=== PATIENT | male | born 1955 | race Caucasian/White ===

== ENCOUNTER 2016-12-22 14:00 | Inpatient (IN) ==
[2016-12-22] MEDS ORDERED: D50W SYRINGE ONE (14:47)
[2016-12-22] MEDS ORDERED: D50W SYRINGE IV ONE (14:57)
[2016-12-22 15:04] LABS: MANUAL DIFF NEEDED? NO
--- NOTE | 2016-12-22 15:07 | PROVIDER DOCUMENTATION ---
HPI-General Adult - General Chief Complaint: Low Blood Sugar Stated Complaint: low blood sugar Time Seen by Provider: 12/22/16 14:30 Source: patient Allergies/Adverse Reactions: Patient Allergies Allergy/AdvReac Type Severity Reaction Status Date / Time No Known Allergies Allergy Verified 08/01/15 09:37 Home Medications: Home Medication List Medication Instructions Recorded Confirmed Last Taken Type Alprazolam [Xanax] 0.5 mg PO BID PRN PRN 08/01/15 04/11/16 04/09/16 History 0.5 Amitriptyline [Elavil] 25 mg PO HS 08/01/15 04/11/16 04/10/16 22:00 History 25 Aspirin 81 mg PO DAILY 08/01/15 04/11/16 04/03/16 History 81 Carvedilol 12.5 mg PO BID 08/01/15 04/11/16 04/11/16 06:00 History 12.5 Citalopram [Celexa] 40 mg PO DAILY 08/01/15 04/11/16 04/10/16 22:00 History 40 Enalapril Maleate 5 mg PO BID 08/01/15 04/11/16 04/11/16 00:00 History 5 Lacosamide [Vimpat] 200 mg PO DAILY 08/01/15 04/11/16 04/10/16 22:00 History 200 Modafinil 1 tab PO BID 08/01/15 04/11/16 04/11/16 06:00 History 1 Pioglitazone HCl/Metformin HCl 1 each PO BID 08/01/15 04/11/16 04/10/16 22:00 History [Pioglitazone-Metformin 15850] 1 Ranitidine [Zantac] 300 mg PO DAILY 08/01/15 04/11/16 04/11/16 06:00 History 300 Sertraline [Zoloft] 2 tab PO DAILY 08/01/15 04/11/16 04/11/16 06:00 History 2 Terazosin [Hytrin] 5 mg PO DAILY 08/01/15 04/11/16 04/11/16 06:00 History 5 Tizanidine [Zanaflex] 4 mg PO Q8H PRN PRN 08/01/15 04/11/16 04/10/16 22:00 History 4 Tramadol HCl [Ultram] 50 mg PO Q4H PRN PRN #0 tablet 08/04/15 04/11/16 04/11/16 06:00 Rx 50 Amoxicillin 500 mg PO TID 04/05/16 04/11/16 04/10/16 22:00 History 500 Sitagliptin Phosphate [Januvia] 25 mg PO DAILY 04/05/16 04/11/16 04/10/16 06:00 History 25 Hydrocodone/Acetaminophen [[place] 1 each PO Q4H PRN PRN #12 tablet 04/11/16 Unknown Rx 7.5-325 Tablet] - History of Present Illness -Gen Adult Nature of Presenting Problems: Patient is a pleasant 61 yrs old male with hx of DM , CHF and multiple other co morbidites, has come with low BGM and tiredness and weakness. He takes lot of medication and does not know exactly which ones he takes or not. He tells that he has been feeling somewhat funny, tired and weak for the last one week. No particular change in the lifestyle. Per his friend, he smokes a lot while he tells it is not much . He is feeling sleepy. He does have history of MANNIE but not very compliant with the CPAP. Quality of Pain: reports: none Context/Activities at Onset: reports: none Modifying Factors: improves with: nothing Associated Symptoms: reports: denies symptoms Similar Symptoms Previously?: Yes Recently seen or treated by another doctor?: No - Diabetes Related Context Context: reports: low blood sugar Review of Systems - Adult - REVIEW OF SYSTEMS - ADULT Constitutional: reports: other (Feeling sleepy and tired) Eyes: reports: no symptoms reported Ears, Nose, Mouth & Throat: reports: no symptoms reported Cardiovascular: reports: no symptoms reported Respiratory: reports: wheezing Gastrointestinal: reports: no symptoms reported Genitourinary: reports: no symptoms reported Musculoskeletal: reports: no symptoms reported Integumentary: reports: no symptoms reported Neurological: reports: no symptoms reported Psychiatric: reports: no symptoms reported Endocrine: reports: no symptoms reported Hematologic/Lymphatic: reports: no symptoms reported Allergic/Immunologic: reports: no symptoms reported Past History - Adult - PAST MEDICAL HISTORY-ADULT Review of Records: reports: Old Records Reviewed Major Childhood Illnesses: reports: denies history Cardiovascular: reports: CHF Respiratory: reports: denies history Gastrointestinal: reports: denies history Obstetrical/Gynecological: reports: denies history Genitourinary: reports: denies history Musculoskeletal: reports: denies history Neurological: reports: denies history Psychiatric: reports: denies history Endocrine/Immune: reports: Diabetes Diabetes Type: Type 2 - PRIOR SURGERIES/PROCEDURES Surgical/Procedure History: reports: none - FAMILY HISTORY Family History: reviewed, not pertinent - SOCIAL HISTORY Smoking: greater than 1 pack/day Provider spent 3-5 mins advising pt. on dangers of tobacco.: Discussed manners to quit use, and f/u contacts for add'l counseling. Substance Use: none/never Physical Exam-General - PHYSICAL EXAM-ADULT Initial Vital Signs Reviewed: Yes - CONSTITUTIONAL General Appearance: mild distress, obese, other - EYES Eyes: PERRL/EOMI - HEAD, EARS, NOSE, MOUTH & THROAT HENMT: normocephalic/atraumatic - NECK Neck: non-tender - RESPIRATORY Respiratory: chest non-tender, no pleuratic chest pain, decreased breath sounds , wheezing - CARDIOVASCULAR Cardiovascular: normal peripheral pulses - GASTROINTESTINAL (ABDOMEN) Abdominal Exam: non tender, soft - LYMPHATIC Lymphatic: no adenopathy - MUSCULOSKELETAL Back Exam: normal inspection, no CVA tenderness Extremity: normal range of motion - SKIN Integumentary: normal color, warm/dry, erythema - 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, grossly normal - PSYCHIATRIC Psych/Mental Status: oriented x 3 Progress - PLAN OF CARE/RESULTS Progress/Plan/Lab Results: Vital Signs - 8 hr 12/22/16 14:13 Temperature 97.5 F L Pulse Rate 57 L Respiratory Rate 18 Blood Pressure 124/59 O2 Sat by Pulse Oximetry 100 Orders Category Date Time Status IV Insertion ORDERED Care 12/22/16 14:[address] HEAD W/O CONTRAST [CT] Stat Exams 12/22/16 14:53 Ordered CBC WITH DIFF [HEME] Stat Lab 12/22/16 14:23 Results COMPREHENSIVE METABOLIC PANEL [CHEM] Stat Lab 12/22/16 14:23 Received TROPONIN T Stat Lab 12/22/16 14:23 Received UA NIMS W/REFLEX CULT [URINALYSIS] Stat Lab 12/22/16 14:53 Uncollected Dextrose 50% Syringe [D50w Syringe] Med 12/22/16 14:47 Discontinued 50 ml .ROUTE .STK-MED ONE Dextrose 50% Syringe [D50w Syringe] Med 12/22/16 14:57 Discontinued 50 ml IV NOW ONE EKG [EKG] Stat Ther 12/22/16 14:53 Ordered Result Diagrams: 12/22/16 14:23 12/22/16 14:23 - REASSESSMENT Reassessment #1 Time Reassessed: 16:10 Reassessment Comment: Sleepy Departure - Departure Date of Disposition Decision: 12/22/16 (Admission ) Time of Disposition Decision: 18:00 DIAGNOSIS: Hypoglycemia, Acute on chronic renal failure, COPD (chronic obstructive pulmonary disease) Disposition: ADMITTED INPATIENT 09 Certified Medical Emergency: Emergent Condition: Stable Additional Freetext Instructions: CT head is negative. CXR seen , no apparent finding. Being admitted for acute on Chronic Renal failure, drowsiness duet o possible polypharmacy and COPD exacerbation . Given here Solu medrol , Breathing treatments, IV fluid. Talked to Ms. Ignacia Gonzalez the Hospitalist DEMETRIO to admit. She has kindly agreed for that. Referrals and Follow-Ups: Rashel Bautista [Primary Care Provider] - - Critical Care Note This patient required my direct & personal management of CC.: No Attestation - Physician/ ELIZABETH Attestation Patient care was provided by Advanced Practice Provider:: No The physician spent face to face time with patient:: Yes Advanced Practice Provider documentation review:: Supervising physician onsite and consulted in the evaluation and care of this patient. The physician did have a face to face encounter with the patient.
[2016-12-22] MEDS ORDERED: SOLU-MEDROL IV ONE (15:10)
[2016-12-22] MEDS ORDERED: DUONEB (A & A) INH ONE (15:10)
[2016-12-22 15:11] LABS: BASO% 0.3 % (0.0-0.8); EOS# 0.19 X1000 (0.0-0.7); EOS% 2.6 % (0.0-10.0); HEMATOCRIT 33.3 % (42.0-52.0); HEMOGLOBIN 10.2 g/dL (14.0-18.0); IMM GRAN# 0.02 X1000 (0.0-0.04); IMM GRAN% 0.3 % (0.0-0.5); LYMPH% 10.8 % (20.5-51.1); MCH 29.3 PG (27-31); MCHC 30.6 g/dL (33-37); MCV 95.7 FL (81-99); MONO% 5.4 % (1.7-9.3); MPV 9.2 FL (7.4-10.4); NEUT% 80.6 % (42.2-75.2); PLT 176 X1000 (130-400); RBC 3.48 XMIL (4.7-6.1)
[2016-12-22 15:35] LABS: ALBUMIN 4.5 g/dL (3.5-5.0); CALCIUM 9.1 mg/dL (8.8-10.2); POTASSIUM 4.6 mmol/L (3.5-5.1); TOTAL BILIRUBIN 0.17 mg/dL (0.20-1.00); TOTAL PROTEIN 7.2 g/dL (6.3-8.3)
[2016-12-22] MEDS ORDERED: NS 500 ML IV ONE (16:23)
[2016-12-22] MEDS ORDERED: NS 1,000 ML IV ONE ×2 (16:27→16:45)
--- NOTE | 2016-12-22 16:53 | Diag Imaging Result Doc PS360 ---
EXAM: CT HEAD W/O CONTRAST TECHNIQUE: Dose reduction protocol was used. INDICATION: ams COMPARISON: None. FINDINGS: There is no definite acute infarct given the limited sensitivity of CT versus MRI. There is no discrete intracranial mass, mass effect, or intracranial hemorrhage. The surrounding soft tissues and bony structures are essentially unremarkable. IMPRESSION: No evidence of acute intracranial pathology. Electronically signed by Maldonado Burdick 12/22/2016 4:51 PM
[2016-12-22 18:16] LABS: URINE CULTURE NEEDED? NO; URINE MICRO REVIEW NEEDED? NO; URINE SOURCE CLEAN CATCH
[2016-12-22 18:20] LABS: BILIRUBIN URINE NEGATIVE (NEGATIVE); BLOOD URINE NEGATIVE (NEGATIVE); COLOR YELLOW; GLUCOSE URINE NEGATIVE (NEGATIVE); LEUKOCYTES URINE NEGATIVE (NEGATIVE); NITRITE URINE NEGATIVE (NEGATIVE); PROTEIN URINE NEGATIVE (NEGATIVE); SP GRAVITY URINE 1.009; TURBIDITY URINE CLEAR (CLEAR); UR EPITHELIAL CELLS <10 /HPF (<10); URINE BACTERIA NEGATIVE /HPF; URINE RBC <10 /HPF (<10); URINE WBC <10 /HPF (<10); UROBILINOGEN URINE NORMAL (NORMAL)
[2016-12-22 18:42] LABS: UR AMPHETAMINES QUAL NONE DETECTED (NONE DETECT); UR BARBITUATES QUAL NONE DETECTED (NONE DETECT); UR BENZODIAZEPIN QUAL NONE DETECTED (NONE DETECT); UR CANNABINOIDS QUAL NONE DETECTED (NONE DETECT); UR COCAINE QUAL NONE DETECTED (NONE DETECT); UR METHADONE QUAL NONE DETECTED (NONE DETECT); UR OPIATES QUAL NONE DETECTED (NONE DETECT); UR OXYCODONE QUAL NONE DETECTED (NONE DETECT); UR PCP QUAL NONE DETECTED (NONE DETECT)
[2016-12-22] MEDS ORDERED: TYLENOL PO PRN (19:03)
--- NOTE | 2016-12-22 19:28 | Diag Imaging Result Doc PS360 ---
EXAM: CHEST-PORTABLE INDICATION: Wheezing TECHNIQUE: One view COMPARISON: None. FINDINGS: The lungs are grossly clear. There is no discrete pleural fluid collection or pneumothorax. Cardiac silhouette is grossly unremarkable accounting for magnification from AP technique. Central vasculature appears normal. IMPRESSION: No evidence of acute pathology by plain radiograph. Electronically signed by Maldonado Burdick 12/22/2016 7:26 PM
--- NOTE | 2016-12-22 20:21 | HISTORY AND PHYSICAL ---
CHIEF COMPLAINT: Altered mental status. HISTORY OF PRESENT ILLNESS: 61-year-old male with multiple comorbidities including hypertension, diabetes, peripheral neuropathy, COPD, anxiety, obesity, obstructive sleep apnea, anemia and CKD was brought by EMS due to altered mental status. As per the at noon this patient was very somnolent and sweating, he also was complaining of dizziness. He went to sleep and she could not wake this patient up so she decided to call EMS and they found out that this patient's blood sugar was really low so they treat this patient and brought this patient over [facility]. Upon arrival they found out that this patient's glucose was around 45, also he has acute kidney injury on chronic kidney disease, he was feeling a little bit better but he still was somehow somnolent. I talked to the family and also with the patient and I found out that this patient is taking multiple medications. In his bag of medications some of them are repeated so probably this patient is taking the same medication multiple times a day, also inside the same bag he has multiple medications that he is no longer on it so I removed all the medication that he was not take it and I put inside the bag the medication that he is he is still taking, he has 4 different pills for his diabetes and 3 of them can potentially cause hypoglycemia. This patient will be admitted to treat his hypoglycemia and acute kidney injury, upon physical examination this patient also is having mild shortness of breath and he is wheezing, he has a recent history of COPD and he is still smoking. REVIEW OF SYSTEMS: All the review of systems were reviewed. All of them are negative except as per HPI. PAST MEDICAL HISTORY: Hypertension, diabetes, obstructive sleep apnea, peripheral neuropathy, COPD, anxiety, obesity, anemia and CKD. 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 Remote history of right knee surgery and feet surgery, also history of neck surgery secondary to disk herniation. SOCIAL HISTORY: This patient smokes since age 21 so he has been smoking for 40 years about 1-1/2 pack daily. He is trying to quit smoking. No alcohol. No drugs. He is not working at this moment. ALLERGIES: No known allergies. BLOOD TRANSFUSIONS: None. HOME MEDICATIONS: Terazosin 5 mg p.o. daily, Januvia 25 mg p.o. daily, simvastatin 80 mg p.o. daily, sertraline 25 mg p.o. daily, ranitidine 150 mg p.o. daily, pioglitazone/ metformin 15/850 one tablet p.o. b.i.d., modafinil 1 tablet p.o. b.i.d. 200 mg, Vimpat 200 mg p.o. daily, [place] 7.5 one tablet p.o. q.4 hours p.r.n., gabapentin 300 mg p.o. t.i.d., furosemide 40 mg p.o. daily, enalapril 5 mg p.o. b.i.d., citalopram/ Celexa 40 mg p.o. daily, carvedilol 12.5 mg p.o. b.i.d., aspirin 81 mg p.o. daily, amitriptyline 25 mg p.o. at bedtime, alprazolam 0.5 mg p.o. b.i.d. p.r.n. anxiety. PHYSICAL EXAM: VITAL SIGNS: Temperature 97.5 degrees, pulse 57, respiratory rate 18, blood pressure 124/59, oxygen saturation 100% on room air. HEENT: Head normocephalic. No trauma. PERRLA. NECK: Supple. No JVD. No masses. Central trachea. Obese. CHEST: Decreased breath sounds globally with expiatory wheezing scattered. CARDIOVASCULAR: RRR. No murmurs. Bradycardic. ABDOMEN: Soft, obese, protuberant, positive bowel sounds. EXTREMITIES: 1+ lower extremity edema. No clubbing. No cyanosis. NEURO: The patient is alert and oriented x3. He answered all my questions but slow answer. He moves all 4 extremities. LABORATORY: WBC 7.3, hemoglobin 10.2, hematocrit 33.3, platelets 176,000. Sodium 139, potassium 4.6, chloride 99, bicarbonate 26, BUN 33, creatinine 2.5, glucose 45, calcium 9.1. ASSESSMENT AND PLAN: 1. Hypoglycemia, this patient is taking multiple drugs for diabetes. Some of them can cause hypoglycemia, I will stop all of them and I will put this patient on a diet and sliding scale insulin and pattern of blood sugar. 2. Altered mental status likely secondary to polypharmacy and hypoglycemia. He is getting better. We will keep an eye on this. 3. Hypertension. I will continue with carvedilol but I will stop the REJI inhibitor because of the kidney injury. 4. Acute kidney injury on chronic kidney disease. As above. 5. Diabetes. I will put this patient on a sliding scale insulin and pattern of blood sugar. At this moment this patient is hypoglycemic. 6. Peripheral neuropathy. Continue with Neurontin. 7. Chronic obstructive pulmonary disease with mild exacerbation. I will put this patient with breathing treatment. 8. Anxiety. I will continue with his p.r.n. home medication. 9. Obstructive sleep apnea. The family is going to bring over his CPAP machine. Apparently this patient is not compliant at home with this machine. 10. Obesity, aware. Will do a diabetic diet for him. 11. Tobacco abuse. This patient has been highly advised against tobacco abuse. I will continue with daily cessation education. He seems to understand. I did the whole explanation also to the family. 12. Deep vein thrombosis prophylaxis. I will put this patient on heparin subcutaneously. 13. Gastroesophageal reflux disease. Continue with his home medication, ranitidine. Further recommendation pending hospital course. cc: Jeffrey Gray MD MTDD
[2016-12-22] MEDS ORDERED: XANAX PO PRN (20:37)
[2016-12-22] MEDS ORDERED: NORCO-7.5 PO PRN (20:37)
[2016-12-22] MEDS: DUONEB (A & A) INH SCH ×2 (20:45→23:15)
[2016-12-22] MEDS: COREG PO SCH (21:44)
[2016-12-22] MEDS: HUMULIN R SUBQ SCH (21:45)
[2016-12-22] MEDS: HEPARIN SUBQ SCH (21:47)
[2016-12-23] MEDS: DUONEB (A & A) INH SCH ×6 (04:17→22:58)
[2016-12-23] MEDS: HUMULIN R SUBQ SCH ×3 (06:41→16:19)
[2016-12-23 07:43] LABS: BASO% 0.1 % (0.0-0.8); HEMATOCRIT 33.6 % (42.0-52.0); HEMOGLOBIN 10.4 g/dL (14.0-18.0); IMM GRAN# 0.05 X1000 (0.0-0.04); IMM GRAN% 0.4 % (0.0-0.5); LYMPH# 0.74 X1000 (1.2-3.4); LYMPH% 6.3 % (20.5-51.1); MANUAL DIFF NEEDED? YES; MCH 29.4 PG (27-31); MCV 94.9 FL (81-99); MONO# 0.22 X1000 (0.11-0.59); MONO% 1.9 % (1.7-9.3); MPV 9.3 FL (7.4-10.4); NEUT% 91.3 % (42.2-75.2); PLT 166 X1000 (130-400); RBC 3.54 XMIL (4.7-6.1)
[2016-12-23 07:45] LABS: ALBUMIN 3.9 g/dL (3.5-5.0); CALCIUM 8.7 mg/dL (8.8-10.2); POTASSIUM 4.9 mmol/L (3.5-5.1); TOTAL BILIRUBIN 0.1 mg/dL (0.20-1.00); TOTAL PROTEIN 6.6 g/dL (6.3-8.3)
[2016-12-23] MEDS: ZANTAC PO SCH (08:26)
[2016-12-23] MEDS: ASPIRIN PO SCH (08:26)
[2016-12-23] MEDS: COREG PO SCH ×2 (08:26→21:29)
[2016-12-23] MEDS: CELEXA PO SCH (08:26)
[2016-12-23] MEDS: HYTRIN PO SCH (08:26)
[2016-12-23] MEDS: HEPARIN SUBQ SCH ×2 (08:26→21:29)
[2016-12-23 09:32] LABS: BANDS 4 % (0-1); LYMPHS 6 % (21-51); MONO 2 % (1-9)
[2016-12-23] MEDS ORDERED: NS 1,000 ML IV SCH (10:06)
--- NOTE | 2016-12-23 11:10 | PROGRESS NOTE ---
DATE: 12/23/2016 SUBJECTIVE: This patient states that he is feeling a little bit better. He is complaining of mild generalized weakness. His blood sugar has been stable and he looks more alert and oriented today. His creatinine is getting better. I held his REJI inhibitor and I held his Lasix to avoid more kidney dysfunction. He received IV fluids at the emergency department and now he will be on gentle fluids. PHYSICAL EXAMINATION: Vital Signs: Temperature 98.2 degrees, pulse 73, respiratory rate 16, blood pressure 127/56, oxygen saturation 98 on room air. HEENT: Head normocephalic. No trauma. PERRLA. Neck: Supple. No JVD. No masses. Central trachea. Obese. Chest: Decreased breath sounds globally with mild expiatory wheezing, scattered. Cardiovascular: RRR. No murmurs. Abdomen: Soft, obese, protuberant. Positive bowel sounds. Extremities: There is 1+ lower extremity edema. No clubbing. No cyanosis. Neurological Examination: The patient is alert and oriented x3. He is answering all my questions. He looks better compared with yesterday. He moves all 4 extremities. LABORATORY: WBC 11.7, hemoglobin 10.4, hematocrit 33.6, platelets 166,000. Sodium 136, potassium 4.9, chloride 100, bicarbonate 26, BUN 33, creatinine 2, glucose 133, calcium 8.7. ASSESSMENT AND PLAN: 1. Hypoglycemia. This is getting better. No more hypoglycemia for the past 12 hours. I think he is taking too many medication for his diabetes. For now, I will continue with the sliding scale insulin. 2. Altered mental status, likely secondary to polypharmacy and hypoglycemia. This is getting better as well. We will continue to monitor. 3. Acute on chronic kidney disease. I have stopped his REJI inhibitor and also his furosemide for now. We will restart this treatment once he is BUN and creatinine are at baseline. 4. Hypertension. Continue with carvedilol. Blood pressure has been stable. 5. Diabetes. Continue with sliding scale insulin and pattern of blood sugar at this moment. 6. Chronic obstructive pulmonary disease with mild exacerbation. Continue with breathing treatment. He is breathing better. 7. Peripheral neuropathy. Continue with Neurontin. 8. Obstructive sleep apnea. The family is going to bring over his CPAP machine. Apparently, he is not compliant at home with this treatment. 9. Obesity, aware. Continue with diabetic diet. 10. Tobacco abuse. This patient has been highly advised against tobacco abuse. I will continue with daily cessation education. 11. Deep venous thrombosis prophylaxis. Continue with heparin subcutaneously. 12. Gastroesophageal reflux disease. Continue with ranitidine. I think this patient is getting better. He has been taking a lot of medications. I do believe that this is the cause of his problems, polypharmacy. I think we can remove most of his medications. He does not even know why he is taking some of them. For now, we will continue with the same treatment. He is getting better. Kidney function is getting better. The creatinine decreased from 2.5-2. Continue with gentle fluid resuscitation. Hopefully, tomorrow we are going to be able to discharge this patient but also we are going to be able to remove some of his medications. cc: Jeffrey Gray MD
[2016-12-23] MEDS: ZOCOR PO SCH (21:29)
[2016-12-24] MEDS: HUMULIN R SUBQ SCH ×4 (00:18→21:22)
[2016-12-24] MEDS: DUONEB (A & A) INH SCH ×6 (03:20→23:00)
[2016-12-24 06:55] LABS: MANUAL DIFF NEEDED? NO
[2016-12-24 06:58] LABS: BASO% 0.1 % (0.0-0.8); EOS# 0.05 X1000 (0.0-0.7); EOS% 0.6 % (0.0-10.0); HEMATOCRIT 30.6 % (42.0-52.0); HEMOGLOBIN 9.2 g/dL (14.0-18.0); IMM GRAN# 0.04 X1000 (0.0-0.04); IMM GRAN% 0.4 % (0.0-0.5); LYMPH# 2.04 X1000 (1.2-3.4); LYMPH% 22.6 % (20.5-51.1); MCH 28.6 PG (27-31); MCHC 30.1 g/dL (33-37); MONO# 0.76 X1000 (0.11-0.59); MONO% 8.4 % (1.7-9.3); NEUT% 67.9 % (42.2-75.2); PLT 151 X1000 (130-400); RBC 3.22 XMIL (4.7-6.1)
[2016-12-24 07:08] LABS: HEMOGLOBIN A1C 4.9 % (4.8-6.0)
[2016-12-24 07:22] LABS: CALCIUM 8.4 mg/dL (8.8-10.2); POTASSIUM 4.7 mmol/L (3.5-5.1)
--- NOTE | 2016-12-24 08:54 | EKG Report ---
Test Performed on : 12/22/2016 2:52:53 PM Test Reason : ams Blood Pressure : / mmHG Vent. Rate : 054 BPM Atrial Rate : 054 BPM P-R Int : 192 ms QRS Dur : 136 ms QT Int : 448 ms P-R-T Axes : 066 -32 -06 degrees QTc Int : 424 ms Sinus bradycardia. Left axis deviation Right bundle branch block Abnormal ECG When compared with ECG of 01-AUG-2015 10:01, No significant change was found Unconfirmed Result
[2016-12-24] MEDS: HEPARIN SUBQ SCH ×2 (09:38→21:15)
[2016-12-24] MEDS: ASPIRIN PO SCH (09:39)
[2016-12-24] MEDS: CELEXA PO SCH (09:39)
[2016-12-24] MEDS: HYTRIN PO SCH (09:39)
[2016-12-24] MEDS: COREG PO SCH ×2 (09:39→21:15)
[2016-12-24] MEDS: ZANTAC PO SCH (09:39)
[2016-12-24] MEDS: 1/2 NS 1,000 ML IV SCH (17:31)
--- NOTE | 2016-12-24 17:45 | PROGRESS NOTE ---
DATE: 12/24/2016 SUBJECTIVE: The patient is sitting up at the edge of the bed. He states that he feels a lot better today. His blood sugars have been stable. OBJECTIVE: Vital Signs: Temperature 98 degrees, blood pressure 139/67, heart rate 61, respirations 20, O2 saturation is 98% on room air. General: This is a morbidly obese, elderly male, sitting at the edge of the bed, in no acute distress. Head: Normocephalic, atraumatic. Heart: S1, S2. Normal. Regular rate and rhythm. Lungs: Clear to auscultation bilaterally. No wheezes. No rales. No rhonchi. Abdomen: Positive bowel sounds. Soft, nontender, nondistended. Extremities: No edema. No cyanosis. No calf tenderness. Neurologic: The patient is alert and oriented x3. LABS: White blood cell count 9, hemoglobin 9.2, hematocrit 30, platelets 151,000. Sodium 139, potassium 4.7, chloride 102, CO2 27, BUN 40, creatinine 2.1, glucose 108. ASSESSMENT AND PLAN: 1. Hypoglycemia. Resolved. Prior to admission the patient was on multiple diabetic medications, all of which are on hold at this time due to the patient's renal dysfunction. Will likely scale back on the patient's diabetic medications. Will continue to monitor the Accu-Cheks before meals and at bedtime. 2. Acute kidney injury on chronic kidney disease. The patient was on several potentially nephrotoxic agents. The creatinine is slowly improving. We will continue with IV fluid hydration. We will check urine studies and a renal ultrasound. 3. Morbid obesity. Aware. 4. Hypertension. Controlled. 5. Obstructive sleep apnea. Continue with CPAP at night. 6. Situational depression. Continue on Celexa. 7. Anxiety disorder. Continue on p.r.n. Xanax. 8. Deep vein thrombosis prophylaxis. Continue on heparin. 9. Continue with physical therapy. cc: Kiarra Spangler MD
[2016-12-24] MEDS: ZOCOR PO SCH (21:15)
[2016-12-25] MEDS: 1/2 NS 1,000 ML IV SCH (03:29)
[2016-12-25] MEDS: DUONEB (A & A) INH SCH (03:47)
[2016-12-25 04:47] LABS: UR CREAT RANDOM 63.7 mg/dL (14-26); UR PROT RANDOM 6.8 mg/dL
[2016-12-25 06:30] VITALS: BP 129/53
[2016-12-25] MEDS: HUMULIN R SUBQ SCH ×2 (06:40→11:44)
[2016-12-25 06:59] LABS: HEMATOCRIT 28.8 % (42.0-52.0); HEMOGLOBIN 8.8 g/dL (14.0-18.0); MCH 29.7 PG (27-31); MCHC 30.6 g/dL (33-37); MCV 97.3 FL (81-99); MPV 9.1 FL (7.4-10.4); RBC 2.96 XMIL (4.7-6.1)
[2016-12-25 07:20] LABS: ALBUMIN 3.3 g/dL (3.5-5.0); CALCIUM 8.3 mg/dL (8.8-10.2); POTASSIUM 4.7 mmol/L (3.5-5.1)
--- NOTE | 2016-12-25 07:47 | Diag Imaging Result Doc PS360 ---
EXAM: US RENAL 2 (RETROPER) COMPLETE HISTORY: gildardo/arf TECHNIQUE: Renal ultrasound COMMENT: The right kidney is 11.4 x 6.2 x 6.4 cm the left is 12 x 5.4 x 6 cm. The urinary bladder is not distended. There is no evidence of hydronephrosis or mass. IMPRESSION: No evidence of obstructive uropathy. Electronically signed by Samir Best 12/25/2016 7:45 AM
[2016-12-25] MEDS: ZANTAC PO SCH (08:10)
[2016-12-25] MEDS: HEPARIN SUBQ SCH (08:10)
[2016-12-25] MEDS: HYTRIN PO SCH (08:10)
[2016-12-25] MEDS: CELEXA PO SCH (08:10)
[2016-12-25] MEDS: ASPIRIN PO SCH (08:10)
[2016-12-25] MEDS: COREG PO SCH (08:11)
[2016-12-25] MEDS ORDERED: GLUCOPHAGE PO SCH (17:00)
--- NOTE | 2016-12-25 19:04 | DISCHARGE SUMMARY ---
ADMISSION DATE: 12/22/2016 DISCHARGE DATE: 12/25/2016 CONSULTATIONS: None. PERTINENT PROCEDURES: 1. Head CT showed no evidence of acute intracranial pathology. 2. Renal ultrasound showed no evidence of obstructive uropathy. 3. Chest x-ray showed no evidence of acute pathology. DISCHARGE DIAGNOSES: 1. Hypoglycemia, resolved. 2. Acute kidney injury on chronic kidney disease. Improving. 3. Morbid obesity. Aware. 4. Hypertension, controlled. 5. Obstructive sleep apnea. Continue CPAP at night. 6. Situational depression. Continue Celexa. 7. Anxiety disorder. Continue p.r.n. Xanax. HOSPITAL COURSE: Mr. Sanchez is a 61-year-old male with multiple comorbidities including hypertension, diabetes mellitus, peripheral neuropathy, COPD, anxiety , obesity, obstructive sleep apnea, anemia, and chronic kidney disease, who was brought in by EMS secondary to altered mental status. Per the , the patient was somnolent, sweating and complaining of dizziness. He went to sleep and she could not get him awake. She called EMS. They found his blood sugar to be low. He was brought to [facility]. Upon arrival his glucose was 45. He also had acute kidney injury. After Dr. Gray initially spoke with the family, the patient is taking multiple medications for his hypoglycemia. They showed him his bag of medicines and he felt like the patient may have been taking some of the same medications multiple times a day as well as other medications that the patient is no longer on. The patient was admitted for hypoglycemia and acute kidney injury. He did receive IV fluids in the ED. He was continued on gentle hydration. His REJI inhibitor was held as well as his Lasix. His blood sugar stabilized. The patient was more alert and oriented. His medications were reconciled. Dr. Lynch had a long depth conversation with the patient and family about polypharmacy as well as getting rid of his old medications. His acute kidney injury is improving. Neuro-paredes the patient was alert and oriented. His blood sugars have been stable. He is appropriate for discharge today. VITAL SIGNS: Temperature is 98 degrees, heart rate 67, respirations 18, blood pressure 129/53, O2 is 97% on room air. DISCHARGE DIET: Diabetic. DISCHARGE MEDICATIONS: As per Dr. Lynch: 1. Xanax 0.5 mg p.o. b.i.d. p.r.n. 2. Aspirin 81 mg p.o. daily. 3. Carvedilol 12.5 mg p.o. b.i.d. 4. Celexa 40 mg p.o. daily. 5. Enalapril 2.5 mg p.o. daily. 6. Gabapentin 30 mg p.o. t.i.d. 7. [place] 7.5/325, 1 each p.o. q. 4 hours p.r.n. 8. Glucophage 850 mg p.o. b.i.d. 9. Zantac 150 mg p.o. daily. 10. Simvastatin p.o. daily. 11. Hytrin 5 mg p.o. daily. FOLLOWUP: Mr. Sanchez is being discharged home. He will follow up with his primary care physician, Rashel Bautista. He has also been educated on polypharmacy. He will return to the ED for any worsening of symptoms. I have personally performed a face to face diagnostic evaluation on this patient , also I reviewed this patient lab work and, images and vital signs, this patient was taking four medications for his diabetes, and his HbA1c was a little bit mote than 4, I personally check all his bottles, talked to the family , he is stable, Dr Jeffrey Camarena Dictated by DEMETRIO Tee for Jeffrey Gray MD cc: MD Rashel Zamora MD MTDD
== END 2016-12-25 16:25 | disposition home or self-care (01) ==
LOC: ED 14:00 → 3N 20:18 → SUATTDRO 20:18 → 3N 12-25 11:09
PROVIDERS: ATTEND Internal Medicine